=== PATIENT | male | born 1985 | race African-American/Black ===

== ENCOUNTER 2024-12-30 13:35 | Inpatient (IN) | payer OTHER ==
[2024-12-30 14:03] VITALS: BMI 19.0
[2024-12-30] MEDS ORDERED: POLYETHYLENE GLYCOL (HEALTHYLAX) 3350 17 GM PACKET PO PRN (14:06)
[2024-12-30] MEDS ORDERED: MAGNESIUM HYDROX 2400MG/30ML ORAL SUSPENSION 30 ML CUP PO PRN (14:06)
[2024-12-30] MEDS ORDERED: guaiFENesin 600 MG TABLET.ER (FP) PO PRN (14:06)
[2024-12-30] MEDS ORDERED: BENZONATATE 200 MG CAPSULE PO PRN (14:06)
[2024-12-30] MEDS ORDERED: MAG HYDROX/AL HYDROX/SIMETH 30 ML UNIT-DOSE CUP PO PRN (14:06)
[2024-12-30] MEDS ORDERED: NICOTINE POLACRILEX 2 MG LOZENGE BC PRN (14:06)
[2024-12-30] MEDS ORDERED: NICOTINE POLACRILEX 2 MG GUM BUC PRN (14:06)
[2024-12-30] MEDS ORDERED: ACETAMINOPHEN 325 MG TABLET (FP) PO PRN (14:06)
[2024-12-30] MEDS ORDERED: LOPERAMIDE HCL 2 MG CAPSULE PO PRN (14:06)
[2024-12-30] MEDS ORDERED: NALOXONE (NARCAN) HCL 4 MG/0.1 ML SPRAY NS PRN (14:06)
[2024-12-30 19:19] LABS: EPI CELLS 2 /uL (0-25.1); HYALINE CASTS 0 /uL (0-3.1); PH,URINE 6.5 (5.0-8.0); URINE APPEARANCE CLEAR; URINE BACTERIA 1 /uL (0-1359); URINE BILIRUBIN NEGATIVE (NEGATIVE); URINE COLOR YELLOW; URINE GLUCOSE (UA) NEGATIVE (NEGATIVE); URINE KETONE NEGATIVE (NEGATIVE); URINE LEUK ESTERASE NEGATIVE (NEGATIVE); URINE NITRITE NEGATIVE (NEGATIVE); URINE PROTEIN 2+ (NEGATIVE); URINE RBC 0 /uL (0-23.9); URINE UROBILINOGEN 0.2 mg/dL (0.2-1.0); URINE WBC 2 /uL (0-25.8)
[2024-12-30] MEDS: MELATONIN 5 MG TABLETS PO SCH (21:22)
[2024-12-30] MEDS: THIAMINE 100 MG TABLET PO SCH (21:22)
[2024-12-31] MEDS: PRENATAL VITAMINS W/ FOLIC ACID TABLET (FP) PO SCH (09:26)
[2024-12-31 11:02] LABS: HEMATOCRIT 33.6 % (40.1-51.0); HEMOGLOBIN 10.8 g/dL (13.7-17.5); MCHC 32.1 g/dl (32.3-36.5); MEAN CELL VOLUME 85.7 fl (79.0-92.2); MEAN PLT VOLUME 10.4 fl (9.4-12.4); PLATELET COUNT 239 x10^3/uL (163-337); RDW 14.2 % (12.0-15.6)
[2024-12-31 11:07] LABS: CALCIUM 8.5 mg/dL (8.5-10.1)
[2024-12-31 11:08] LABS: BLOOD UREA NITROGEN 10.8 mg/dL (7-18)
[2024-12-31 11:10] LABS: ALBUMIN 2.8 g/dl (3.4-5.0)
[2024-12-31 11:11] LABS: CREATININE 0.7 mg/dL (0.55-1.3)
[2024-12-31 11:12] LABS: BILIRUBIN,TOTAL 0.5 mg/dL (0.2-1)
[2024-12-31 11:13] LABS: TOT PROT 5.8 g/dl (6.4-8.2)
[2024-12-31] MEDS: FLU VACCINE (FLULAVAL) PF 45 MCG/0.5 ML SYRINGE 2024-2025 IM ONE (11:30)
[2024-12-31 11:32] LABS: SYPHILIS W/ RPR CONF NON-REACTIVE (NONREACTIVE)
[2024-12-31 11:58] LABS: HCV DIAGNOSTIC IN-HOUSE W/RFLX NON-REACTIVE (NONREACTIVE)
[2024-12-31] MEDS: BICTEGRAV/EMTRICIT/TENOFOV (BIKTARVY) 50-200-25 MG TABLET PO SCH (14:06)
[2024-12-31] MEDS: OLANZapine 10 MG TABLET PO SCH (21:57)
[2025-01-01] MEDS ORDERED: BICTEGRAV/EMTRICIT/TENOFOV (BIKTARVY) 50-200-25 MG TABLET PO SCH (14:00)
[2025-01-01] MEDS: BICTEGRAV/EMTRICIT/TENOFOV (BIKTARVY) 50-200-25 MG TABLET PO SCH (17:20)
[2025-01-07] MEDS: IBUPROFEN 400 MG TABLET (FP) PO PRN (08:02)
[2025-01-07] MEDS: hydrOXYzine PAMOATE 25 MG CAPSULE (FP) PO PRN (10:31)
[2025-01-07] MEDS: DIVALPROEX SODIUM 250 MG TABLET E.C. PO SCH (12:32)
[2025-01-07] MEDS: IBUPROFEN 600 MG TABLET (FP) PO PRN (20:39)
[2025-01-07] MEDS: DIVALPROEX SODIUM 500 MG TABLET E.C. PO SCH (21:17)
[2025-01-08] MEDS: hydrOXYzine PAMOATE 50 MG CAPSULE (FP) PO PRN (10:27)
[2025-01-09] MEDS ORDERED: MELATONIN 5 MG TABLETS PO SCH (09:40)
[2025-01-09] MEDS: AMANTADINE HCL 100 MG TABLET PO SCH (10:46)
[2025-01-09] MEDS: MELATONIN 5 MG TABLETS PO SCH (21:27)
[2025-01-24 07:16] VITALS: RESP 18
[2025-01-25] MEDS: BENZOCAINE/MENTHOL (CHLORASEPTIC ) LOZENGE MM PRN (01:34)
[2025-01-26 07:00] VITALS: BP 122/73; PULSE 98; TEMP 98.1
== END 2025-01-26 10:30 | disposition home or self-care (01) | DRG 772 ==
LOC: YASAS 13:35 → Y3NR 16:35 → Y5N 12-31 10:40
PROVIDERS: ADMIT Allergy & Immunology; ATTEND Psychiatry & Neurology Pain Medicine
PROC: HZ42ZZZ Group Counseling for Substance Abuse Treatment, Cognitive-Behavioral (ICD-10-PCS; principal; 2024-12-30)
DX: F14.20 Cocaine dependence, uncomplicated (principal); F12.20 Cannabis dependence, uncomplicated; F17.210 Nicotine dependence, cigarettes, uncomplicated; F25.9 Schizoaffective disorder, unspecified; F19.282 Other psychoactive substance dependence with psychoactive substance-induced sleep disorder; Z21 Asymptomatic human immunodeficiency virus [HIV] infection status; Z20.828 Contact with and (suspected) exposure to other viral communicable diseases; Z79.899 Other long term (current) drug therapy
CPT/HCPCS: 0241U-QW; 36415; 80053; 80164; 80305; 80307; 81003; 85027; 86780; 86803; 87811; 90656; 93005; 93010; G0008